=== PATIENT | female | born 1990 | race Caucasian/White ===

== ENCOUNTER 2023-03-21 07:30 | Inpatient (IN) | payer BC ==
[2023-03-20 11:23] LABS: Hematocrit 34.4 % (34.9-44.5); Mean Corpuscular Hemoglobin 26.4 pg (27.0-33.0); Mean Corpuscular Volume 82.7 fl (81.6-98.3); Mean Platelet Volume 10.1 fl (7.4-10.4); Platelet Count 262 10x3/uL (150-450); RBC Distribution Width 13.6 % (11.5-14.5); Red Blood Cell (RBC) Count 4.16 10x6/uL (3.90-5.03); White Blood Cell (WBC) Count 10.5 10x3/uL (3.5-10.5)
[2023-03-20 11:57] LABS: HBSAg Index 0.18 S/CO (0-0.99); Hep B Surf Ag Non-Reactive S/CO (NonReactive)
[2023-03-20 11:58] LABS: Syphilis Antibody Nonreactive (Nonreactive); Syphilis Antibody Index 0.04 S/CO (<1.00 Non-Reactive)
[2023-03-21 10:51] VITALS: BMI 25.2
[2023-03-21] MEDS ORDERED: Bicitra 30 ML UDCUP PO PRN (11:27)
[2023-03-21] MEDS ORDERED: hydrALAZINE 20 MG/ML VIAL SLOW IVP PRN ×2 (11:27→15:03)
[2023-03-21] MEDS ORDERED: Famotidine/PF 20 mg/2ml Vial SLOW IVP PRN (11:27)
[2023-03-21] MEDS ORDERED: Promethazine HCl 25 MG/ML VIAL IM PRN ×2 (11:27→12:49)
[2023-03-21] MEDS ORDERED: Ondansetron PF 4 MG/2 ML Vial IVP PRN ×4 (11:27→15:03)
[2023-03-21] MEDS ORDERED: Oxytocin 30 units/NS 500 ML 500 ML IV SCH ×2 (11:27→15:03)
[2023-03-21] MEDS ORDERED: Promethazine HCl 25 MG SUPP PR PRN (12:49)
[2023-03-21] MEDS ORDERED: Meperidine HCl/PF 25 MG (1 mL) VIAL SLOW IVP PRN (12:49)
[2023-03-21] MEDS ORDERED: Naloxone HCl 0.4 mg/ml Vial IV PRN (12:49)
[2023-03-21] MEDS ORDERED: fentaNYL 50 mcg/mL 1 mL Vial SLOW IVP PRN (12:49)
[2023-03-21] MEDS ORDERED: Moisturizing Cream (Eucerin) 113 GM JAR TOP PRN (12:49)
[2023-03-21] MEDS ORDERED: diphenhydrAMINE 50 MG/ML VIAL IVP PRN (12:49)
[2023-03-21] MEDS ORDERED: Naloxone HCl 0.4 mg/ml Vial IVP PRN ×2 (12:49)
[2023-03-21] MEDS ORDERED: Ketorolac Tromethamine 30 MG (1 mL) VIAL IVP SCH (13:00)
[2023-03-21] MEDS ORDERED: Communication Order-Pharmacy FS SCH (13:00)
[2023-03-21] MEDS ORDERED: HYDROcodone/Acetaminophen 5/325 mg Tablet PO PRN ×2 (13:00)
[2023-03-21] MEDS ORDERED: Bisacodyl 10 MG SUPP PR PRN (15:03)
[2023-03-21] MEDS ORDERED: diphenhydrAMINE 25 MG CAP PO PRN (15:03)
[2023-03-21] MEDS: Dexamethasone 4 mg/ml Vial ONE (15:15)
[2023-03-21] MEDS: Oxytocin 10 UNITS/ML VIAL ONE (15:16)
[2023-03-21] MEDS: CEFAZOLIN 2 GM in Sodium Chloride 0.9% 100 ML IVPB SCH (15:16)
[2023-03-21] MEDS: Ondansetron PF 4 MG/2 ML Vial ONE (15:16)
[2023-03-21] MEDS: Morphine PF 10 MG/10 ML VIAL ONE (15:16)
[2023-03-21] MEDS: PHENYLEPHRINE-NS 100 MCG/ML 10 ML SYRINGE ONE ×2 (15:16→15:17)
[2023-03-21] MEDS: Boostrix 0.5 ML (Tdap) VIAL (>/=7 yrs of age) IM ONE (15:17)
[2023-03-21] MEDS: Ketorolac Tromethamine 30 MG (1 mL) VIAL IVP PRN (16:15)
[2023-03-21] MEDS: Ferrous Sulfate 325 MG TAB PO SCH (21:28)
[2023-03-21] MEDS: Docusate 100 MG CAP PO SCH (21:28)
[2023-03-22 03:34] LABS: Hematocrit 25.7 % (34.9-44.5); Hemoglobin 8.6 g/dL (12.0-15.5); Mean Corpuscular HGB CONC 33.5 g/dL (32.0-36.0); Mean Corpuscular Hemoglobin 27.5 pg (27.0-33.0); Mean Corpuscular Volume 82.1 fl (81.6-98.3); Mean Platelet Volume 10.2 fl (7.4-10.4); Platelet Count 206 10x3/uL (150-450); RBC Distribution Width 13.6 % (11.5-14.5); Red Blood Cell (RBC) Count 3.13 10x6/uL (3.90-5.03); White Blood Cell (WBC) Count 12.3 10x3/uL (3.5-10.5)
[2023-03-22] MEDS: Prenatal Vitamin 1 TAB PO SCH (09:06)
[2023-03-22] MEDS: Ibuprofen 800 MG TAB PO SCH (13:53)
[2023-03-22] MEDS: Simethicone Chewable 80 MG TAB PO PRN (21:36)
[2023-03-22] MEDS: HYDROcodone/Acetaminophen 5/325 mg Tablet PO PRN (21:36)
[2023-03-23 08:30] VITALS: BP 106/76; TEMP 98.5
[2023-03-23] MEDS: HYDROcodone/Acetaminophen 5/325 mg Tablet PO PRN (09:21)
== END 2023-03-23 12:20 | disposition home or self-care (01) | DRG 788 ==
LOC: CSHLD 09:56 → CSHPP 15:03
PROVIDERS: ADMIT Obstetrics & Gynecology; ATTEND Obstetrics & Gynecology
PROC: 10D00Z1 Extraction of Products of Conception, Low, Open Approach (ICD-10-PCS; principal; 2023-03-21)
DX: O34.211 Maternal care for low transverse scar from previous cesarean delivery (principal); O24.425 Gestational diabetes mellitus in childbirth, controlled by oral hypoglycemic drugs; Z3A.38 38 weeks gestation of pregnancy; Z37.0 Single live birth; O99.824 Streptococcus B carrier state complicating childbirth; O99.02 Anemia complicating childbirth; D64.9 Anemia, unspecified
CPT/HCPCS: 36415; 51702; 85027; 86780; 86850; 86900; 86901; 87340; J1100; J1885; J2274; J2405; J2590